=== PATIENT | female | born 1970 | race Caucasian/White ===

== ENCOUNTER 2022-04-18 15:10 | Outpatient (CLI) | payer BC, SELFPAY ==
--- OUTSIDE RECORDS SUMMARY | 2022-03-18 09:37 | XMS_ITS | Continuity of Care Document ---
:1970 Author Care Team Providers Name Role Phone MD Elvis Medrano Attending Physician MD Mitchell M Primary Care Physician Chief Complaint and Reason for Visit Chief Complaint Chest Pain Reason for Visit [id number] hx of [place] Allergies, Adverse Reactions, Alerts Allergen Type Severity Reaction Last Verified Status Updated Lisinopril Allergy Unknown March 17, Yes Active 2021 Sumatriptan Adverse Severe March 17, Yes Active Reaction 2021 Atorvastatin Adverse Mild elevated March 17, Yes Active Reaction liver 2021 enzymes Social History Smoking Status Status Start Date End Date Date of Observat ion Never smoked tobacco March 17, 2022 8:53am (finding) Observation Status Observation Response Date of Response Non-smoker June 12, 2018 5:22pm July 23, 2019 1 :59pm Does not use illicit drugs October 08, 2020 2:18pm History provided by Patient July 24, 2019 9 :49pm Where do you live? Own home/apt July 24, 2019 9 :49pm With whom do you live? Spouse July 24 9:49pm Adult children July 24, 2019 9 :49pm Additional Data Assigned Sex Female Problems Active Problems Medical Problem Onset Date Status Hypothyroidism Active HTN (hypertension) Active Allergic rhinitis Active Plantar fasciitis, bilateral Resolved Chronic sinusitis Active Acute coronary syndrome Resolved Frequent headaches Active Elevated lipoprotein(a) Active Hyperlipidemia Active Ectopic , tubal Active Fisher teeth extracted Active Inactive/Resolved Problems Medical Problem Onset Date Status Contact dermatitis Resolved Acute pharyngitis Resolved Medications Medication Status Dose Units Route Directions Qty Days Start End Ins tructions Date Date Acetaminophen Active 1-2 TAB PO Every 6 30 Septemb /Hydrocodone Hours as er , Bitart needed 2020 (Hydrocodone- 3:37pm Acetaminophen ) 5 Mg/325 Mg TAB Amlodipine Active 5 MG OR Daily January Besylate 2021 3:40pm Cetirizine Active 10 MG PO Daily as Hcl needed Ezetimibe Active 10 MG PO Daily February 15, 2022 3:40pm Ibuprofen Active 600 MG PO Every 6 Hours as needed Levothyroxine Active 88 MCG PO Daily 90 January Sodium 2021 3:40pm Multivitamins Active 1 TAB PO Daily (Multivitamin /Minerals) TAB Nitroglycerin Active 0.4 MG SL Every 5 100 Minutes X 3 as needed Propranolol Active 20 MG PO Twice A Day 180 January Hcl 2021 3:40pm Rosuvastatin Active 5 MG PO As Directed January 23 tab by Calcium , mouth at 2021 bedtime three 3:40pm nights per week. Acetaminophen Disconti 1-2 TAB PO Every 4 e /Hydrocodone nued Hours as er 6th, r Bitart needed 2016, (Hydrocodone- 2:09pm 2016 Acetaminophen 4:07pm ) 5 Mg/325 Mg TAB Amlodipine Disconti 5 MG OR Daily January Besylate nued er , 2020 3:36pm 3:40pm Amlodipine Disconti 5 MG OR Daily Besylate nued r 2019, 10:13am 2020 3:36pm Amlodipine Disconti 5 MG OR Daily Novemb Besylate nued er 2019 10:13a m Amoxicillin Disconti 875 MG PO Twice Daily June tem nued For 10 Days 2015 6th, 10:05am 2016 1:19pm Amoxicillin Disconti 875 MG PO Twice Daily Dec il nued For 10 Days r 2014 9:43am 8:31am Amoxicillin & Disconti 1 TABLET PO Twice Daily February Pot nued For 10 Days r , , Clavulanate 2017 2018 (Augmentin) 10:22am 9:28am 875 Mg/125 Mg TAB Amoxicillin/C Disconti 1 TAB PO Twice Daily February obe lavulanate nued For 10 Days , Potassium 2018, (Amoxicillin 11:37am 2018 & Pot 8:05am Clavulanate) 875 Mg/125 Mg TAB Aspirin Disconti 81 MG PO Daily February nued 2021 7:18am Atorvastatin Disconti 40 MG PO Bedtime Septemberb Calcium nued , er 2020 01, 4:01pm 2019 3:17pm Atorvastatin Disconti 40 MG PO Bedtime 90 Decembe Januar Calcium nued r , y 2018, 10:26am 2019 4:01pm Atorvastatin Disconti 40 MG PO Bedtime 30 Decemb Calcium nued er 2018 10:26a m Azithromycin Disconti 500 MG PO Daily March (Zithromax) nued , 500 Mg TAB 2006 2007 11:25am 9:42am Cefuroxime Disconti 500 MG PO Twice A Day be Axetil nued er , r 2018, 4:20pm 2018 8:28am Cephalexin Disconti 500 MG PO Three Times January Take at the start of ingown toenail. Take 1 tab 3x/day for nued A Day er , , 7 days. Repe at if needed. 2020 2021 3:36pm 3:04pm Cetirizine/Ps Disconti 1 TAB PO Daily March eudoephedrine nued , (Zyrtec-D) 5 2006 2015 Mg/120 Mg 11:25am 12:46p TABSR m Ciprofloxacin Disconti 1 TABLET PO Twice A Day Septemberem Hcl nued 2020, 3:14pm 2020 3:09pm Ciprofloxacin Disconti 1 TABLET PO Twice Daily Septemberem Hcl nued For 7 Days 2020 8th, 10:52am 2020 3:09pm Diphtheria/Te Disconti 0.5 ML IM Once January tanus/Acell nued , , Pertussis 2021 2021 (Adacel) 0.5 3:26pm 3:53pm Ml INJ Esomeprazole Disconti 20 MG PO Daily March Magnesium nued , (Nexium) 20 2006 Mg CAP 11:14a m Ezetimibe Disconti 10 MG PO Daily January nued er , , 2020 2021 3:36pm 3:40pm Ezetimibe Disconti 10 MG PO Daily Septemberem nued , jose 2020 8th, 9:54am 2020 3:36pm Ferrous Disconti 1 TAB PO Daily February Fumarate-Noemi nued 6th, min C 2021 (Vitron-C) 2:17pm TAB Fluconazole Disconti 150 MG PO Once September 1 t ab by nued , , mouth once; 2020 2021 repeat in 72 9:44am 2:17pm hours if needed. Fluconazole Disconti 150 MG PO Once Juneobe 1 tab by mouth once at start of yeast infection. Repeat if nued , r needed. 2018, 8:29am 2018 8:28am Fluconazole Disconti 150 MG PO Once Februaryobe 1 ta b by mouth once at start of yeast infection. Repeat if nued , r needed. 2018, 11:37am 2018 8:29am Fluconazole Disconti 150 MG PO Once Juneem 1 tab by mouth once at start of yeast infection; repeat in nued , jose 72 hours if ne eded. 2015 6th, 10:05am 2016 1:19pm Fluticasone Disconti 1-2 SPRAY EACH Daily 1 Octobe Propionate nued NOSTR er , r (Nasal) 2016, 2:09pm 2018 8:28am Guaifenesin-C Disconti 2 TSP PO Bedtime as April odeine nued needed , , (Masonitussin 2006 2007 Ac) 120 Ml 9:58am 9:42am SYRP Guaifenesin-C Disconti 1 ML PO Bedtime as March odeine nued needed , , (Robitussin 2006 2006 Ac) 120 Ml 11:27am 2:11pm SYRP Ibuprofen Disconti 1 TABLET PO Three Times 0 Octobe PRN PAIN nued A Day r 2018 8:28am Influenza Disconti 0.5 ML IM Once 1 Septem Virus Vacc nued er jose Triv Types , , A&B (Fluarix) 2008 2008 0.5 Ml INJ 8:14am 9:45am Influenza Disconti 0.5 ML IM Once Novemb Virus Vaccine nued r 5th, er Split 2020 01, (Fluzone 3:25pm 2019 Quadrivalent 3:42pm 2019 0.5 Ml) 1 Inj INJ Levothyroxine Disconti 88 MCG PO Daily January Sodium nued er 8th, 2020 3:36pm 3:40pm Levothyroxine Disconti 88 MCG PO Daily December Sodium nued , 2020 8th, 10:56am 2020 3:36pm Levothyroxine Disconti 88 MCG PO Daily September Sodium nued , 2020 3:52pm 10:56a m Levothyroxine Disconti 88 MCG PO Daily r Sodium nued r , y 2019 5:31pm 3:52pm Levothyroxine Disconti 75 MCG PO Daily Juneuar Sodium nued , y 2018, 4:45pm 2019 3:59pm Levothyroxine Disconti 50 MCG PO Daily Juneobe Sodium nued , r , 2017 2018 11:56am 1:05pm Levothyroxine Disconti 50 MCG PO Daily Junobe Sodium nued er 6th, r , 2016 2017 2:09pm 11:56a m Levothyroxine Disconti 50 MCG PO Daily Septemberem Sodium nued , jose 2017 02, 6:28pm 2016 2:09pm Levothyroxine Disconti 50 MCG PO Daily Aprilr Sodium nued , y 2015, 8:03am 2016 6:28pm Levothyroxine Disconti 50 MCG PO Daily Marchobe Sodium nued , r 2016 , 7:56am 2016 9:44am Levothyroxine Disconti 50 MCG PO Daily September P t will be Sodium nued , , due for med 2016 2016 f/u in January 7:38am 7:56am Levothyroxine Disconti 50 MCG PO Daily 30 Decembe Sepuar Pt needs to Sodium nued r , y have lab wo rk 2014, done prior to 3:27pm 2016 next refill. 7:38am Levothyroxine Disconti 50 MCG PO Daily 60 March Decemb Sodium nued 16th, er 2015 15, 5:26pm 2014 3:27pm Lisinopril Disconti 20 MG PO Daily 90 Decembe Januar nued r , y 2018, 10:26am 2019 3:40pm Lisinopril Disconti 20 MG PO Daily 30 Decemb nued er 2018 10:26a m Lisinopril Disconti 30 MG PO Daily Juneobe nued , r 2018, 8:47am 2018 1:03pm Lisinopril Disconti 30 MG PO Daily Juneobe nued , r 2018, 1:05pm 2018 8:47am Lisinopril Disconti 30 MG PO Daily 90 Octobe nued er r , 2018 1:05pm 4:08pm Lisinopril Disconti 30 MG PO Daily 90 Septem nued er jose , 2017 3:52pm 4:08pm Lisinopril Disconti 30 MG PO Daily 90 Septem nued er , jose 2016, 2:09pm 2017 3:52pm Lisinopril Disconti 30 MG PO Daily April nued 2nd, jose 2016 , 11:02am 2016 2:09pm Lisinopril Disconti 30 MG PO Daily March Pt ne eds to nued , , have lab work 2015 2015 done prior to 9:03am 11:02a next refill. m Lisinopril Disconti 30 MG PO Daily January nued , 2014 2016 1:12pm 9:03am Lisinopril Disconti 30 MG PO Daily 21 February nued 2014 1:12pm Meloxicam Disconti 15 MG PO Daily [place] (Mobic) 15 Mg nued , jose TAB 2016 , 1:23pm 2016 1:29pm Mometasone Disconti 0.1 % EX As Needed Decemb Furoate nued er 2014 8:50am Multiple Disconti 1 EA PO Octobe Vitamin nued r (Multi-Vitami 31st, n) TAB 2019 8:28am Omeprazole Disconti 20 MG PO Daily as 90 January (Omeprazole nued needed er , , Dr) 20 Mg CAP 2020 2021 3:36pm 3:04pm Omeprazole Disconti 20 MG PO Daily as 90 Decembe Septem (Omeprazole nued needed r , jose Dr) 20 Mg CAP 2020 04, 8:35am 2020 3:36pm Propranolol Disconti 20 MG PO Twice A Day 180 Septjanuary Hcl nued er , , 2020 2021 3:36pm 3:40pm Propranolol Disconti 20 MG PO Twice A Day 180 Novembe Sep tem Hcl nued r , jose 2020 04, 3:21pm 2020 3:36pm Propranolol Disconti 40 MG PO Twice A Day Septe m Hcl nued jose 2020 3:09pm Pseudoephedri Disconti 30 MG PO As Needed January ne Hcl nued , (Sudafed) 30 2015 Mg TAB 12:46p m Rosuvastatin Disconti 5 MG PO As Directed Ma y 1 tab by Calcium nued er , , mouth at 2020 2021 bedtime three 3:36pm 3:40pm nights per week. Rosuvastatin Disconti 5 MG PO As Directed December em 1 tab by Calcium nued , jose mouth at 2021 04, bedtime three 10:56am 2020 nights per 3:36pm week. Rosuvastatin Disconti 5 MG PO As Directed 18 October Ap ril 1 tab by mouth at bedtime two nights per week ( e.g. Wed Calcium nued , , and Monday evening). 2020 2020 9:54am 10:56a m Sulfamethoxaz Disconti 1 TABLET PO Twice A Day June ole-Trimethop nued , 18, rim (Bactrim 2010 2014 Ds (800/160)) 9:20am 12:46p 800 Mg/160 Mg m TAB Sumatriptan Disconti 50 MG PO As Needed June e ONE TAB AT ONSET OF HEADACHE, JANUARY REPEAT Q2H PRN, MAX 200 Succinate nued as needed , r MG/24 HRS 2018, 8:47am 2018 1:03pm Sumatriptan Disconti 50 MG PO As Needed February ONE TAB AT ONSET OF HEADACHE, JANUARY REPEAT Q2H PRN, MAX 200 Succinate nued as needed 25th, r MG/24 HRS 2018 14, 12:46pm 2018 8:47am Sumatriptan Disconti 50 MG PO As Needed December O NE TAB AT ONSET OF HEADACHE, JANUARY REPEAT Q2H PRN, MAX 200 Succinate nued as needed 8th, 25th, MG/24 HRS 2018 2018 10:24am 12:46p m Sumatriptan Disconti 50 MG PO As Needed December ONE TAB AT ONSET OF HEADACHE, JANUARY REPEAT Q2H PRN, MAX 200 Succinate nued as needed er 8th, MG/24 HRS 2018 10:24a 4:08pm m Sumatriptan Disconti 50 MG PO As Needed m ONE TAB AT ONSET OF HEADACHE, JANUARY REPEAT Q2H PRN, MAX 200 Succinate nued as needed er jose MG/24 HRS , 2017 3:52pm 4:08pm Sumatriptan Disconti 50 MG PO As Needed m ONE TAB AT ONSET OF HEADACHE, JANUARY REPEAT Q2H PRN, MAX 200 Succinate nued as needed er 7th, jose MG/2 4 HRS 2017 18, 12:47pm 2017 3:52pm Sumatriptan Disconti 50 MG PO As Needed m ONE TAB AT ONSET OF HEADACHE, JANUARY REPEAT Q2H PRN, MAX 200 Succinate nued as needed er 6th, jose MG/2 4 HRS 2016 7th, 2:09pm 2017 12:47p m Immunizations Immunization Event Date Not Given Dose [employer] Lot Vac cine Reason Number Number Informatio n Statement (VIS) Deta sarahy COVID-19 Pfizer December 12 PFIZER-BIONTMovable [id number] 2020 COVID-19 Pfizer January 02 PFIZER-BIONTECH [id number] 2020 Influenza May 26 FLUARIX [id number] 2008 A Influenza July 21, 2 [id number] 2018 A Influenza July 30, 3 SANOFI [id number] 2019 A Tdap May 18, 1 (adolescent/adul 2011 t) Tdap February 15, 2 SANOFI (adolescent/adul 2021 t) Procedures Procedure Date Performed Status Electrocardiogram February 28, 2022 completed HEPATIC FUNCTION PANEL February 15, 2022 completed TTE W/DOPPLER COMPLETE February 25, 2022 completed SARS-COV-2 COVID-19 AMP PRB February 28, 2022 completed 2D echocardiography with color February 25, 2022 completed flow Doppler imaging Relevant Diagnostic Tests and/or Laboratory Data Laboratory Results Test Date/Time Result Interpretation Reference Result Comment Performing Site Range Total February 15, 7.3 6.0-8.3 The use of [facility] Protein 2021 lisset Peters [address] [facility] 3:47pm bone [place] [address] stimulant used to treat thrombocytopen ia and aplastic anemia, interferes with this measurement of total protein. A 5% bias has been observed. Albumin February 15, 4.6 3.3-5.0 [facility] 2021 [address] [facility] 3:47pm [place] [address] Total February 15, 0.4 0.1-1.5 [facility] Bilirubin 2021 [address] [facility] 3:47pm [place] [address] Direct February 15, 0.4 0.0-0.5 [facility] Bilirubin 2021 [address] [facility] 3:47pm [facility] [address] Aspartate February 15, 38 12-35 [facility] Amino 2021 [address] [facility] Transf 3:47pm [place] [address] (AST/SGOT) Alanine February 15, 43 4-35 [facility] Aminotransf 2021 [address] [facility] erase 3:47pm [facility] [address] (ALT/SGPT) Alkaline February 15, 70 40-150 [facility] Phosphatase 2021 [address] [facility] 3:47pm [place] [address] Coronavirus February 28, NEGATIVE NEGATIVE The 2019 novel [facility] (COVID-19)( 2021 SARS-CoV- coronavirus 4[address]rik PCR) 2:10pm 2 (SARS-CoV-2) [facility] [address] target nucleic acids are not detected by RT-PCR. This result does not rule out SARS-CoV-2 in the patient, as the sensitivity of the test depends on timing of the specimen collection and quality of the specimen. Results should be correlated with the patient's history and clinical presentation. Vital Signs Vital Reading Result Reference Range Collection Date/ Time Height 74 [in_i] February 15, 2022 3 :05pm Height 187.96 cm February 15, 2022 3 :05pm Weight 297.00 [lb_av] February 15, 2022 3 :05pm Weight 134.693626 kg February 15, 2022 3 :05pm Body Temperature 96.1 [degF] February 15, 2022 3:05pm Body Temperature 35.61 Milagros February 15, 2022 3:05pm BP Systolic 143 mm[Hg] February 15, 2022 3 :05pm BP Diastolic 96 mm[Hg] February 15, 2022 3 :05pm Heart Rate 65 /min February 15, 2022 3 :05pm Respiratory rate 18 /min February 15, 2022 3:05pm Body surface area 2.57 m2 February 15, 2022 3:05pm BMI (Body Mass Index) 38.2 kg/m2 February 15, 2022 3:05pm Height 73.620 [in_i] February 28, 2022 2 :13pm Height 187 cm February 28, 2022 2 :13pm Weight 292.00 [lb_av] February 28, 2022 2 :13pm Weight 132.651417 kg February 28, 2022 2 :13pm Body Temperature 97.2 [degF] February 28, 2022 2:13pm Body Temperature 36.22 Milagros February 28, 2022 2:13pm BP Systolic 139 mm[Hg] February 28, 2022 2 :13pm BP Diastolic 92 mm[Hg] February 28, 2022 2 :13pm Heart Rate 60 /min February 28, 2022 2 :13pm Respiratory rate 18 /min February 28, 2022 2:13pm Body surface area 2.54 m2 February 28, 2022 2:13pm BMI (Body Mass Index) 37.9 kg/m2 February 28, 2022 2:13pm Height 0 [in_i] February 28, 2022 2 :18pm BP Systolic 127 mm[Hg] February 28, 2022 2 :18pm BP Diastolic 87 mm[Hg] February 28, 2022 2 :18pm Height 0 [in_i] March 17, 2022 7:15am Weight 291.00 [lb_av] March 17, 2022 7:15am Weight 132.376841 kg March 17, 2022 7:15am Body Temperature 97.8 [degF] March 17, 2022 7:15am Body Temperature 36.56 Milagros March 17, 2022 7:15am BP Systolic 127 mm[Hg] March 17, 2022 7:15am BP Diastolic 89 mm[Hg] March 17, 2022 7:15am Heart Rate 75 /min March 17, 2022 7:15am Respiratory rate 17 /min March 17, 2022 7:15am Advance Directives Advance Directive Response Recorded Date/Time Has patient completed a No March 17, 2022 8:53am Health Care Directive? Insurance Providers Guarantor Yessi Field Address [address] [address] Contact Info. Home Phone: Payer Policy Id Coverage Id Subscriber's Subscriber Id Effective E xpiration Name Date Date Blue [id number] Darryl Field May Lapine 2011 [id number] Encounters Encounter Location(s) Arrival/Admit Date Discharge/Depart Date Provider(s) Registered [facility] March 17, 2022 Valerie Medrano 7:15am Lissy Leal MD Office Visit [place] March 17, 2022 [facility] 7:15am Lissy Leal MD Office Visit [place] February 28, 2022 [facility] 2:15pm Lissy Leal MD Registered [place] February 28, 2022 [facility] 2:10pm Lissy Leal MD Registered [place] February 25, 2022 [facility] 7:41am Lissy Leal MD Registered [place] February 15, 2022 [facility] 3:15pm Lissy Leal MD Office Visit [place] February 15, 2022 [facility] 3:00pm Lissy Leal MD Recent Diagnosis Onset Date 2nd degree burn Encounter for screening for COVID-19 History of heart disease Preoperative exam for gynecologic surgery Acute coronary syndrome Need for Tdap vaccination No family history of breast cancer No family history of adverse response to anesthesi No family history of bleeding disorder Hyperlipidemia Well adult exam No family history of colorectal cancer Screening for breast cancer Cardiomyopathy Functional Status Observation Response Date Recorded Functional Status Independent July 25, 2019 1 :46pm Mental Status Observation Response Date Recorded Cognitive Status Alert July 25, 2019 1 :46pm Oriented July 25, 2019 1 :46pm Assessments Will control hypothyroidism, medications renewed for this as well for 1 year Plan of Treatment Instructions from visit on: 03/17/22 The midline lesion is currently 20x10 mm and the left lesion is 4x10mm of central injury. 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 This should take about 6-8 more weeks to close. THis needs to be measured every week, with expected progress of 2mm of shrinkage every 2 weeks (not necessarily in every direction). Keep covered with a bandaid, apply bacitracin at least once daily. Change bandage daily until wound closes. If it stops healing, you develop fevers or seems to be worsening, come back. It would not benefit from oral antibiotics at this time. Instructions from visit on: 02/28/22 Please follow the provider's instructions as discussed during your visit. Instructions from visit on: 02/15/22 Today we will update her tetanus shot, this is good for 10 years. I would like to get a repeat echo of your heart, this will more closely look at about bottom tip of the heart that is usually affected by what we call the apical cardiomyopathy. That is when I am assuming was the diagnosis they landed with regarding your heart. Chances are it really was just caused by the Imitrex per for a lot of people this will go back to normal within a couple of years. This gets a lot of leverage and different options to manage your blood pressure, your heart in your weight over time that may have been restricted if this is still looking abnormal on the echo. If it is still abnormal, we can assume that that is permanent for you and plan accordingly. We would still need to manage your blood pressure even if the echo has gone back to normal that we give a some flexibility. For now, we will stand the amlodipine and the propranolol the same way that you are doing. I like where your thyroid is, I will renew your levothyroxine. I agree that we do need to double check your liver function but I would like where your cholesterol is in the setting of the rosuvastatin right now. I have ordered a mammogram, they will call you to schedule this. Future Tests Future scheduled test information is unavailable Pending Tests Pending diagnostic test information is unavailable Future Visits Future appointment information is unavailable Referrals to Other Providers Reason for Referral Referral Start Provider Provider Contact Pr ovider Date Information Address Entered by Kasandra Donaldson on 02/20/08 at 10:19 a.m. [facility] Appointment scheduled for 02/22/08 at 9 am at [facility] Entered by Kasandra Donaldson on 02/20/08 at 10:19 a.m. [facility] Appointment scheduled for 02/22/08 at 9 am at [facility]. [facility] Future Procedures Procedure Name Scheduled Date EDILMA Bilat Mammo Scrn Future Medications Future medication information is unavailable Patient Instructions See Additional Instructions Chest Pain (ED) Goals Ambulatory Goals Reach or maintain optimal well being. Reach or maintain optimal well being. Reach or maintain optimal well being.
--- NOTE | 2022-04-18 15:20 | CRLHL7_ITS ---
For Patients: As a result of the Century Cures Act, medical imaging exams and procedure reports are released immediately into your electronic medical record. You may view this report before your referring provider. If you have questions, please contact your health care provider. BILATERAL MAMMOGRAM WITH COMPUTER-AIDED DETECTION AND TOMOSYNTHESIS TECHNIQUE: CC and MLO views were obtained. These mammographic images have been obtained using full-field digital technique. These mammographic images were interpreted with the benefit of computer-aided detection. Breast Tomosynthesis was used in this interpretation. COMPARISON FILM: 09/12/19, 02/14/18, 04/21/15. FINDINGS: There are scattered areas of fibroglandular density IMPRESSION: There is no radiographic evidence for malignancy. ASSESSMENT: BI-RADS Category 1: Negative RECOMMENDATION: Routine screening mammogram in 1 year. A lay language report of this examination will be provided to the patient. Quentin Casillas M.D. Diagnostic/Musculoskeletal Radiologist [email or web address] NIRMAL/lionel / be/Dictated by: Quentin Casillas MD @ 04/19/2022 8:14:00 AM (Electronically Signed)
== END 2022-04-18 15:11 | disposition home or self-care (01) ==
LOC: MAMMO 15:14
PROVIDERS: Visit Provider Family Medicine
DX: Z12.31 Encounter for screening mammogram for malignant neoplasm of breast (principal)
CPT/HCPCS: 77063; 77067

== ENCOUNTER 2022-07-26 16:07 | Outpatient (CLI) | payer BC, SELFPAY ==
[2022-07-26 21:44] LABS: Alanine Aminotransferase* 32 U/L (4-35); Aspartate Amino Transferase* 40 U/L (12-35)
== END 2022-07-26 16:08 | disposition home or self-care (01) ==
PROVIDERS: PCP Physician Assistant Medical; Visit Provider Physician Assistant Medical
DX: E03.9 Hypothyroidism, unspecified (principal); R79.89 Other specified abnormal findings of blood chemistry; I10 Essential (primary) hypertension; E78.5 Hyperlipidemia, unspecified
CPT/HCPCS: 84443; 84450; 84460

== ENCOUNTER 2022-10-17 15:23 | Outpatient (CLI) | payer BC, SELFPAY ==
[2022-10-17 22:27] LABS: Chloride* 107 mmol/L (96-114); Sodium* 140 mmol/L (135-149)
[2022-10-17 22:30] LABS: Blood Urea Nitrogen* 15 mg/dL (7-30); Carbon Dioxide* 27 mmol/L (20-32); Creatinine* 0.9 mg/dL (0.5-1.5); Estimated Glomerular Filt Rate 76 ml/min
[2022-10-17 22:31] LABS: Calcium* 9.6 mg/dL (8.4-10.6); Glucose* 102 mg/dL (60-115)
== END 2022-10-17 15:24 | disposition home or self-care (01) ==
LOC: FRMREF 15:24
PROVIDERS: PCP Physician Assistant Medical; Visit Provider Family Medicine
DX: Z01.818 Encounter for other preprocedural examination (principal); I10 Essential (primary) hypertension
CPT/HCPCS: 80048

== ENCOUNTER 2022-10-28 11:09 | Outpatient (CLI) | payer BC, SELFPAY ==
--- NOTE | 2022-10-28 11:46 | W.ANESCHARGE ---
Anesthesia Charges Start Date/Time Anesthesia Start Date: 10/28/22 Anesthesia Start Time: 12:05 Stop Date/Time Anesthesia Stop Date: 10/28/22 Anesthesia Stop Time: 12:25
--- NOTE | 2022-10-28 12:26 | W.ANESCHARGE ---
Anesthesia Charges Start Date/Time Anesthesia Start Date: 10/28/22 Anesthesia Start Time: 12:05 Stop Date/Time Anesthesia Stop Date: 10/28/22 Anesthesia Stop Time: 12:25
== END 2022-10-28 11:10 | disposition home or self-care (01) ==
LOC: OP CLINIC 11:10
PROVIDERS: PCP Physician Assistant Medical; Visit Provider Internal Medicine
DX: R13.10 Dysphagia, unspecified (principal)
CPT/HCPCS: 00731; 43239; 88305; J2704; J3490

== ENCOUNTER 2023-04-04 14:57 | Outpatient (CLI) | payer BC, SELFPAY | END 2023-04-04 14:58 | disposition home or self-care (01) | LOC: NFLDREF 04-05 07:09 | PROVIDERS: PCP Physician Assistant Medical; Referring Provider Physician Assistant Medical; Visit Provider Physician Assistant Medical | DX: B35.1 Tinea unguium (principal); B07.9 Viral wart, unspecified | CPT/HCPCS: 84450; 84460 ==

== ENCOUNTER 2023-05-18 14:58 | Outpatient (CLI) | payer BC, SELFPAY ==
--- NOTE | 2023-05-18 15:20 | CRLHL7_ITS ---
For Patients: As a result of the Century Cures Act, medical imaging exams and procedure reports are released immediately into your electronic medical record. You may view this report before your referring provider. If you have questions, please contact your health care provider. BILATERAL SCREENING MAMMOGRAM WITH COMPUTER-AIDED DETECTION AND TOMOSYNTHESIS TECHNIQUE: CC and MLO views were obtained. These mammographic images have been obtained using full-field digital technique. These mammographic images were interpreted with the benefit of computer-aided detection. Breast Tomosynthesis was used in this interpretation. COMPARISON FILM: 04/18/22, 09/12/19, 02/14/18. FINDINGS: There are scattered areas of fibroglandular density IMPRESSION: There is no radiographic evidence for malignancy. ASSESSMENT: BI-RADS Category 1: Negative RECOMMENDATION: Routine screening mammogram in 1 year. A lay language report of this examination will be provided to the patient. Franklin Partida M.D. Diagnostic Radiologist [email or web address] YONI/Dictated by: Franklin Partida MD @ 05/25/2023 11:54:00 AM (Electronically Signed)
== END 2023-05-18 14:59 | disposition home or self-care (01) ==
LOC: MAMMO 15:00
PROVIDERS: PCP Physician Assistant Medical; Visit Provider Physician Assistant Medical
DX: Z12.31 Encounter for screening mammogram for malignant neoplasm of breast (principal)
CPT/HCPCS: 77063; 77067

== ENCOUNTER 2023-07-06 07:35 | Outpatient (CLI) | payer BC, SELFPAY | END 2023-07-06 07:36 | disposition home or self-care (01) | LOC: NFLDREF 07-07 07:27 | PROVIDERS: PCP Physician Assistant Medical; Referring Provider Physician Assistant Medical; Visit Provider Physician Assistant Medical | DX: B35.1 Tinea unguium (principal) | CPT/HCPCS: 84450; 84460 ==

== ENCOUNTER 2024-03-26 08:14 | Outpatient (CLI) | payer BC, SELFPAY | END 2024-03-26 08:15 | disposition home or self-care (01) | LOC: NFLDREF 03-29 06:04 | PROVIDERS: PCP Physician Assistant Medical; Referring Provider Physician Assistant Medical; Visit Provider Physician Assistant Medical | DX: E03.9 Hypothyroidism, unspecified (principal); I10 Essential (primary) hypertension; E78.2 Mixed hyperlipidemia | CPT/HCPCS: 80053; 80061; 84443 ==

== ENCOUNTER 2024-06-05 15:30 | Outpatient (RCR) | payer BC, SELFPAY | END 2024-08-27 16:07 | disposition home or self-care (01) | PROVIDERS: PCP Physician Assistant Medical; Visit Provider Physician Assistant Surgical | DX: G89.29 Other chronic pain (principal); M25.551 Pain in right hip; M25.511 Pain in right shoulder; M67.813 Other specified disorders of tendon, right shoulder; M25.811 Other specified joint disorders, right shoulder; R10.31 Right lower quadrant pain; Z51.89 Encounter for other specified aftercare | CPT/HCPCS: 97110; 97140; 97162 ==

== ENCOUNTER 2025-04-21 07:45 | Outpatient (CLI) | payer BC, SELFPAY | END 2025-04-21 07:46 | disposition home or self-care (01) | LOC: NFLDREF 04-22 14:12 | PROVIDERS: PCP Physician Assistant Medical; Referring Provider Physician Assistant Medical; Visit Provider Physician Assistant Medical | DX: E03.9 Hypothyroidism, unspecified (principal); I10 Essential (primary) hypertension; E78.2 Mixed hyperlipidemia; I24.9 Acute ischemic heart disease, unspecified | CPT/HCPCS: 80053; 80061; 84443 ==

== ENCOUNTER 2025-08-27 14:30 | Outpatient (CLI) | payer BC, SELFPAY ==
--- NOTE | 2025-08-27 15:00 | CRLHL7_ITS ---
For Patients: As a result of the Century Cures Act, medical imaging exams and procedure reports are released immediately into your electronic medical record. You may view this report before your referring provider. If you have questions, please contact your health care provider. INDICATION: BILATERAL SCREENING MAMMOGRAM, ASYMPTOMATIC 55 Y/O FEMALE COMPARISON: 05/18/2023, 04/18/2022, 09/12/2019 TECHNIQUE: Digital mammogram in CC and MLO projections including computer-aided detection (CAD) and tomosynthesis. BREAST COMPOSITION: There are scattered areas of fibroglandular density. FINDINGS: No suspicious findings. ASSESSMENT: BI-RADS 1 Negative RECOMMENDATION: Annual screening mammogram. A lay language report of this examination will be provided to the patient. Dictated by: Franklin Partida MD @ 08/28/2025 09:52:39 (Electronically Signed)
== END 2025-08-27 14:31 | disposition home or self-care (01) ==
LOC: MAMMO 14:30
PROVIDERS: PCP Physician Assistant Medical; Visit Provider Physician Assistant Medical
DX: Z12.31 Encounter for screening mammogram for malignant neoplasm of breast (principal)
CPT/HCPCS: 77063; 77067